=== PATIENT | male | born 2000 | race Caucasian/White ===

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

== ENCOUNTER 2021-01-14 23:32 | Emergency (ER) | payer OTHER ==
[2021-01-14 23:40] VITALS: TEMP 97.9
[2021-01-15] MEDS ORDERED: ONDANSETRON 4 MG ODT STARTER PACK 2 TAB BTL PO STA (00:02)
[2021-01-15] MEDS ORDERED: MAG HYDROX/AL HYDROX/SIMETH 30 ML, HYOSCYAMINE ELIXIR 10 ML, LIDOCAINE VISCOUS 2% 10 ML PO STA ×3 (00:02)
--- NOTE | 2021-01-15 00:14 | ED ---
Abdominal Pain HPI - General Chief Complaint: Abdominal Pain Stated Complaint: ABD Pain Time Seen by Provider: 01/14/21 23:46 Source: patient Mode of arrival: ambulatory - History of Present Illness Initial Comments: 20-year-old male patient presents to the emergency department today for evaluation of nausea and discomfort in his abdomen. Patient states that his abdomen has been feeling tight and crampy for the last couple of days. States that he has had diminished bowel movements. He reports nausea but no vomiting. States he is able to eat and drink. Denies taking any medication for his symptoms. Denies any fever or chills. Denies any nasal congestion, cough, shortness of breath. Denies any sick contacts or recent travel. - Related Data Previous Rx's Medication Instructions Recorded Famotidine [Pepcid] 20 mg PO HS #30 tablet 01/15/21 Ondansetron [Zofran ODT] 4 mg PO Q8HR PRN #10 tab 01/15/21 Allergies Allergy/AdvReac Type Severity Reaction Status Date / Time No Known Allergies Allergy Verified 01/14/21 23:39 Review of Systems ROS Statement: Those systems with pertinent positive or pertinent negative responses have been documented in the HPI. ROS Other: All systems not noted in ROS Statement are negative. Past Medical History Past Medical History: No Reported History History of Any Multi-Drug Resistant Organisms: None Reported Past Surgical History: No Surgical Hx Reported Additional Past Surgical History / Comment(s): right hand sx Past Psychological History: No Psychological Hx Reported Smoking Status: Current every day smoker Past Alcohol Use History: None Reported Past Drug Use History: None Reported General Exam General appearance: alert, in no apparent distress, other (Physical well- developed, well-nourished adult male patient in no acute distress. Vital signs upon presentation are temperature 97.9F, pulse 96, respirations 19, blood pressure 148/89, pulse ox 100% on room air.) Eye exam: Present: normal appearance, PERRL, EOMI. Absent: scleral icterus, conjunctival injection, periorbital swelling ENT exam: Present: normal exam, normal oropharynx, mucous membranes moist Respiratory exam: Present: normal lung sounds bilaterally. Absent: respiratory distress, wheezes, rales, rhonchi, stridor Cardiovascular Exam: Present: regular rate, normal rhythm, normal heart sounds. Absent: systolic murmur, diastolic murmur, rubs, gallop, clicks GI/Abdominal exam: Present: soft, normal bowel sounds. Absent: distended, tenderness, guarding, rebound, rigid Neurological exam: Present: alert, oriented X3, CN II-XII intact Psychiatric exam: Present: normal affect, normal mood Skin exam: Present: warm, dry, intact, normal color. Absent: rash Course Vital Signs 01/14/21 01/15/21 23:36 01:28 Temperature 97.9 F Pulse Rate 96 79 Respiratory 19 18 Rate Blood Pressure 148/89 139/88 O2 Sat by Pulse 100 98 Oximetry Medical Decision Making - Medical Decision Making This is a 20-year-old male patient presents to the emergency department today for evaluation of abdominal discomfort and nausea. Reports the sensation as feeling tight and crampy. Denies vomiting, denies constipation or diarrhea. There was states he is feeling nauseated. He is given Zofran and GI cocktail. X-ray of the abdomen was negative. I did discuss findings and results with him. He states he is feeling better after receiving the medication. I be discharged to follow up with his primary care physician for recheck in 1-2 days. Return parameters were discussed in detail. He verbalizes understanding and agrees with this plan. Case discussed with my attending Dr. Felix. - Radiology Data Radiology results: report reviewed, image reviewed KUB x-rays obtained. Report reviewed in its entirety. Impression by Dr. Pack shows nonacute abdomen. Disposition Clinical Impression: Abdominal pain, Nausea Disposition: HOME SELF-CARE Condition: Good Instructions (If sedation given, give patient instructions): Acute Nausea and Vomiting (ED), Abdominal Pain (ED) Additional Instructions: Take medications as directed. Follow up through primary care physician for recheck in 1-2 days. Return for any new, worsening, or concerning symptoms. Prescriptions: Famotidine [Pepcid] 20 mg PO HS #30 tablet Ondansetron [Zofran ODT] 4 mg PO Q8HR PRN #10 tab PRN Reason: Nausea Is patient prescribed a controlled substance at d/c from ED?: No Referrals: None,Stated [Primary Care Provider] - 1-2 days Time of Disposition: 01:08
--- NOTE | 2021-01-15 00:44 | XR ---
EXAMINATION TYPE: XR KUB DATE OF EXAM: 01/15/2021 COMPARISON: NONE HISTORY: Abdominal pain TECHNIQUE: 2 views FINDINGS: Bowel gas pattern is normal. There is no sign of intestinal obstruction or pneumoperitoneum . Fecal pattern is normal. There is no evidence of a mass. Lung bases are clear. There are no patholo gic calcifications over the kidneys. Bony structures appear intact. IMPRESSION: Nonacute abdomen.
[2021-01-15 01:30] VITALS: BP 139/88; PULSE 79; RESP 18
== END 2021-01-15 01:30 | disposition home or self-care (01) ==
LOC: EC 23:32
DX: R10.9 Unspecified abdominal pain (principal); R11.0 Nausea; F17.200 Nicotine dependence, unspecified, uncomplicated
CPT/HCPCS: 74018; 99283; S0119

== ENCOUNTER 2021-01-19 16:52 | Emergency (ER) | payer OTHER ==
[2021-01-19 17:03] VITALS: TEMP 98.6
[2021-01-19 17:34] LABS: Basophils % (A) 1 %; Eosinophils # (A) 0.2 k/uL (0-0.7); Eosinophils % (A) 2 %; HCT 49.5 % (39.0-53.0); Lymphocytes % (A) 22 %; MCH 31.1 pg (25.0-35.0); MCHC 32.4 g/dL (31.0-37.0); MCV 96.1 fL (80.0-100.0); Mean Platelet Volume 7.4; Monocytes # (A) 0.6 k/uL (0-1.0); Monocytes % (A) 7 %; Neutrophils # (A) 6.1 k/uL (1.3-7.7); Neutrophils % (A) 67 %; Platelet Count 286 k/uL (150-450); RBC 5.15 m/uL (4.30-5.90); RDW 12.8 % (11.5-15.5); WBC 9.1 k/uL (3.8-10.6)
[2021-01-19 17:52] LABS: ALT 21 U/L (4-49); AST 25 U/L (17-59); African American GFR (CKD) >90 (>60 ml/min/1.73 sqM); Albumin 4.7 g/dL (3.5-5.0); Alkaline Phosphatase 84 U/L (38-126); Anion Gap 10 mmol/L; Blood Urea Nitrogen 11 mg/dL (9-20); Calcium 9.8 mg/dL (8.4-10.2); Carbon Dioxide 26 mmol/L (22-30); Chloride 105 mmol/L (98-107); Glucose 115 mg/dL (74-99); Lipase 321 U/L (23-300); Non-African American GFR(CKD) >90 (>60 ml/min/1.73 sqM); Potassium 3.5 mmol/L (3.5-5.1); Sodium 141 mmol/L (137-145); Total Bilirubin 0.5 mg/dL (0.2-1.3); Total Protein 7.5 g/dL (6.3-8.2)
--- NOTE | 2021-01-19 17:54 | ED ---
General Adult HPI - General Chief complaint: Abdominal Pain Stated complaint: Abdominal pain, nausea Time Seen by Provider: 01/19/21 17:13 Source: patient Mode of arrival: ambulatory Limitations: no limitations - History of Present Illness Initial comments: Dictation was produced using [employer]ient[employer] dictation software. please excuse any grammatical, word or spelling errors. Chief Complaint: 20-year-old male presents to the emergency department for lower abdominal pain History of Present Illness: Patient 20-year-old male with no significant past medical history. He was seen here 5 days ago for symptoms consistent with gastritis is giving GI cocktail with improvement of symptoms. He states that his pain moved down to his lower abdomen. States when he works he has pain to his lower abdomen. Denies any vomiting or diarrhea. Does complain of some mild nausea. States that the pain is in the suprapubic area. Denies any testicular or penile pain. Denies any dysuria. The ROS documented in this emergency department record has been reviewed and confirmed by me. Those systems with pertinent positive or negative responses have been documented in the HPI. All other systems are other negative and/or noncontributory. PHYSICAL EXAM: General Impression: Alert and oriented x3, not in acute distress HEENT: Normocephalic atraumatic, extra-ocular movements intact, pupils equal and reactive to light bilaterally, mucous membranes moist. Cardiovascular: Heart regular rate and rhythm Chest: Able to complete full sentences, no retractions, no tachypnea Abdomen: abdomen soft, non-tender, non-distended, no organomegaly : No testicular tenderness, symmetrical Musculoskeletal: Pulses present and equal in all extremities, no peripheral edema Motor: no focal deficits noted Neurological: CN II-XII grossly intact, no focal motor or sensory deficits noted Skin: Intact with no visualized rashes Psych: Normal affect and mood ED course: 20 y Old male presents with lower abdominal pain. Vital Signs upon arrival are within acceptable limits. Laboratory evaluation obtained. CBC, metabolic panel is unremarkable. Lipase slightly elevated to 21. Urinalysis is negative. Patient reevaluated at bedside at 7:30 PM vitamin stable condition. This point is not entirely obvious was causing patient's symptoms. He is well-appearing with benign abdominal exam. He is well-appearing. Patient be discharged. - Related Data Previous Rx's Medication Instructions Recorded Famotidine [Pepcid] 20 mg PO HS #30 tablet 01/15/21 Ondansetron [Zofran ODT] 4 mg PO Q8HR PRN #10 tab 01/15/21 Allergies Allergy/AdvReac Type Severity Reaction Status Date / Time No Known Allergies Allergy Verified 01/19/21 17:59 Review of Systems ROS Statement: Those systems with pertinent positive or pertinent negative responses have been documented in the HPI. ROS Other: All systems not noted in ROS Statement are negative. Past Medical History Past Medical History: No Reported History History of Any Multi-Drug Resistant Organisms: None Reported Past Surgical History: No Surgical Hx Reported Additional Past Surgical History / Comment(s): right hand sx Past Psychological History: No Psychological Hx Reported Smoking Status: Current every day smoker Past Alcohol Use History: None Reported Past Drug Use History: None Reported General Exam Limitations: no limitations Course Vital Signs 01/19/21 01/19/21 17:01 18:30 Temperature 98.6 F Pulse Rate 100 79 Respiratory 18 18 Rate Blood Pressure 115/81 131/80 O2 Sat by Pulse 99 96 Oximetry Medical Decision Making - Lab Data Result diagrams: 01/19/21 17:22 01/19/21 17:22 Lab Results 01/19/21 01/19/21 01/19/21 Range/Units 17:22 17:22 19:12 WBC 9.1 (3.8-10.6) k/uL RBC 5.15 (4.30-5.90) m/uL Hgb 16.0 (13.0-17.5) gm/dL Hct 49.5 (39.0-53.0) % MCV 96.1 (80.0-100.0) fL MCH 31.1 (25.0-35.0) pg MCHC 32.4 (31.0-37.0) g/dL RDW 12.8 (11.5-15.5) % Plt Count 286 (150-450) k/uL MPV 7.4 Neutrophils % 67 % Lymphocytes % 22 % Monocytes % 7 % Eosinophils % 2 % Basophils % 1 % Neutrophils # 6.1 (1.3-7.7) k/uL Lymphocytes # 2.0 (1.0-4.8) k/uL Monocytes # 0.6 (0-1.0) k/uL Eosinophils # 0.2 (0-0.7) k/uL Basophils # 0.0 (0-0.2) k/uL Sodium 141 (137-145) mmol/L Potassium 3.5 (3.5-5.1) mmol/L Chloride 105 (98-107) mmol/L Carbon Dioxide 26 (22-30) mmol/L Anion Gap 10 mmol/L BUN 11 (9-20) mg/dL Creatinine 0.92 (0.66-1.25) mg/dL Est GFR (CKD-EPI)AfAm >90 (>60 ml/min/1.73 sqM) Est GFR (CKD-EPI)NonAf >90 (>60 ml/min/1.73 sqM) Glucose 115 H (74-99) mg/dL Calcium 9.8 (8.4-10.2) mg/dL Total Bilirubin 0.5 (0.2-1.3) mg/dL AST 25 (17-59) U/L ALT 21 (4-49) U/L Alkaline Phosphatase 84 (38-126) U/L Total Protein 7.5 (6.3-8.2) g/dL Albumin 4.7 (3.5-5.0) g/dL Lipase 321 H (23-300) U/L Urine Color Yellow Urine Appearance Clear (Clear) Urine pH 6.0 (5.0-8.0) Ur Specific [place] 1.031 (1.001-1.035) Urine Protein Trace H (Negative) Urine Glucose (UA) Negative (Negative) Urine Ketones Negative (Negative) Urine Blood Negative (Negative) Urine Nitrite Negative (Negative) Urine Bilirubin Negative (Negative) Urine Urobilinogen 2.0 (<2.0) mg/dL Ur Leukocyte Esterase Negative (Negative) Disposition Clinical Impression: Abdominal pain Disposition: HOME SELF-CARE Condition: Fair Instructions (If sedation given, give patient instructions): Abdominal Pain (ED) Is patient prescribed a controlled substance at d/c from ED?: No Referrals: None,Stated [Primary Care Provider] - 1-2 days
[2021-01-19 19:24] LABS: Appearance,Urine Clear (Clear); Bilirubin,Urine Negative (Negative); Blood,Urine Negative (Negative); Color,Urine Yellow; Glucose,Urine (UA) Negative (Negative); Ketones,Urine Negative (Negative); Leukocyte Esterase,Urine Negative (Negative); Nitrite,Urine Negative (Negative); Protein,Urine Trace (Negative); Specific Gravity,Urine 1.031 (1.001-1.035)
[2021-01-19 19:38] VITALS: BP 134/82; PULSE 76; RESP 20
== END 2021-01-19 19:38 | disposition home or self-care (01) ==
LOC: EC 16:52
DX: R10.30 Lower abdominal pain, unspecified (principal); R11.0 Nausea; F17.200 Nicotine dependence, unspecified, uncomplicated
CPT/HCPCS: 36415; 80053; 81003; 83690; 85025; 99284

== ENCOUNTER 2021-01-27 12:01 | Emergency (ER) | payer OTHER ==
[2021-01-27 12:05] VITALS: RESP 18
--- NOTE | 2021-01-27 12:36 | ED ---
General Adult HPI - General Source: patient, RN notes reviewed, old records reviewed Mode of arrival: ambulatory Limitations: no limitations - History of Present Illness -: days(s) (1) Severity scale (1-10): 5 (Sore throat) Consistency: intermittent Improves with: none Worsens with: none Associated Symptoms: nausea/vomiting Treatments Prior to Arrival: other (Zofran at 10:30) <John Benavidez - Last Filed: 01/27/21 19:41> <Elza Alejandro - Last Filed: 01/27/21 23:27> - General Chief complaint: ENT Stated complaint: neck swelling/wants covid test/nausea - History of Present Illness Initial comments: Well-appearing 20-year-old white male, alert and oriented 4, presents to the emergency room with complaints of a sore throat since yesterday. He states that he was seen recently for the same along with some abdominal pain and nausea. He does state that he smokes marijuana daily. He did take a Zofran today at 10:30 with some relief. His last bowel movement was today. He was concerned that he may be exposed to Covid and is in for Covid test. (John Benavidez) - Related Data Previous Rx's Medication Instructions Recorded Famotidine [Pepcid] 20 mg PO HS #30 tablet 01/15/21 Ondansetron [Zofran ODT] 4 mg PO Q8HR PRN #10 tab 01/15/21 Allergies Allergy/AdvReac Type Severity Reaction Status Date / Time No Known Allergies Allergy Verified 01/27/21 13:32 Review of Systems ROS Other: All systems not noted in ROS Statement are negative. <John Benavidez - Last Filed: 01/27/21 19:41> ROS Other: All systems not noted in ROS Statement are negative. <Elza Alejandro - Last Filed: 01/27/21 23:27> ROS Statement: Those systems with pertinent positive or pertinent negative responses have been documented in the HPI. Past Medical History Past Medical History: No Reported History History of Any Multi-Drug Resistant Organisms: None Reported Past Surgical History: No Surgical Hx Reported Additional Past Surgical History / Comment(s): right hand sx Past Psychological History: No Psychological Hx Reported Smoking Status: Current some day smoker Past Alcohol Use History: None Reported Past Drug Use History: Marijuana <John Benavidez - Last Filed: 01/27/21 19:41> General Exam Limitations: no limitations General appearance: alert, in no apparent distress Head exam: Present: atraumatic, normocephalic, normal inspection Eye exam: Present: normal appearance, PERRL, EOMI. Absent: scleral icterus, conjunctival injection, periorbital swelling ENT exam: Present: normal exam, normal oropharynx, mucous membranes moist Neck exam: Present: normal inspection, full ROM. Absent: tenderness, meningismus, lymphadenopathy, thyromegaly Respiratory exam: Present: normal lung sounds bilaterally. Absent: respiratory distress, wheezes, rales, rhonchi, stridor, chest wall tenderness, accessory muscle use, decreased breath sounds, prolonged expiratory Cardiovascular Exam: Present: regular rate, normal rhythm, normal heart sounds. Absent: systolic murmur, diastolic murmur, rubs, gallop, clicks GI/Abdominal exam: Present: soft, normal bowel sounds. Absent: distended, tenderness, guarding, rebound, rigid Extremities exam: Present: normal inspection, full ROM, normal capillary refill. Absent: tenderness, pedal edema, joint swelling, calf tenderness Back exam: Present: normal inspection, full ROM. Absent: tenderness, CVA tenderness (R), CVA tenderness (L), muscle spasm, paraspinal tenderness, verte bral tenderness Neurological exam: Present: alert, oriented X3, CN II-XII intact Psychiatric exam: Present: normal affect, normal mood, anxious Skin exam: Present: warm, dry, intact, normal color. Absent: rash, cyanosis, diaphoretic, erythema, petechiae, pallor, mottled <John Benavidez - Last Filed: 01/27/21 19:41> Course Vital Signs 01/27/21 01/27/21 12:03 13:59 Temperature 98.5 F 98.3 F Pulse Rate 100 97 Respiratory 18 18 Rate Blood Pressure 131/85 137/80 O2 Sat by Pulse 98 98 Oximetry Medical Decision Making <John Benavidez - Last Filed: 01/27/21 19:41> <Elza Alejandro A - Last Filed: 01/27/21 23:27> - Medical Decision Making The patient does state that he smokes marijuana daily which may be a cause of his persistent nausea and vomiting. There is no evidence of infection, he denies any fevers or hematochezia or hematemesis. He does get relief with the Zofran and he was recently prescribed. Abdomen is soft and nontender. His covid test was negative. He is well-appearingvital signs within normal limits. This is likely nausea related to excessive marijuana use. He'll be directed to follow up with his primary care doctor. Case was discussed with Dr. Alejandro (John Benavidez) I was available for consultation in the emergency department. The history and physical exam were done by the midlevel provider. I was consulted for this patients care. I reviewed the case with the midlevel provider and based on their presentation of the patient, I agree with the assessment, medical decision making and plan of care as documented. Chart was dictated using [employer] dictation software. Attempts were made to correct any dictation errors however some typographical errors may persist. Patient was seen during a national state of emergency due to the Covid-19 pandemic. (Elza Alejandro) - Lab Data Lab Results 01/27/21 Range/Units 12:46 Coronavirus (PCR) Not Detected (Not Detectd) Disposition Is patient prescribed a controlled substance at d/c from ED?: No Time of Disposition: 13:18 <Jonh Benavidez - Last Filed: 01/27/21 19:41> <Elza Alejandro - Last Filed: 01/27/21 23:27> Clinical Impression: Nausea Disposition: HOME SELF-CARE Condition: Good Instructions (If sedation given, give patient instructions): Acute Nausea and Vomiting (ED) Additional Instructions: Stop smoking marijuana. Return to the emergency room with any worsening symptoms, fever or inability to keep any fluids down. Follow-up with your doctor in 1 week Referrals: None,Stated [Primary Care Provider] - 1-2 days
[2021-01-27 14:00] VITALS: BP 137/80; PULSE 97; TEMP 98.3
== END 2021-01-27 14:00 | disposition home or self-care (01) ==
LOC: EC 12:01
DX: R11.2 Nausea with vomiting, unspecified (principal); R10.9 Unspecified abdominal pain; R22.1 Localized swelling, mass and lump, neck; F17.200 Nicotine dependence, unspecified, uncomplicated; Z20.822 Contact with and (suspected) exposure to COVID-19
CPT/HCPCS: 87635; 99284

== ENCOUNTER 2021-01-29 18:17 | Emergency (ER) | payer OTHER ==
[2021-01-29 18:23] VITALS: BP 134/74; PULSE 91; RESP 18; TEMP 98.4
[2021-01-29] MEDS ORDERED: DEXAMETHASONE SOD PHOSPHATE 10 MG/ML 1 ML VIAL IM STA (19:24)
--- NOTE | 2021-01-29 20:23 | ED ---
General Adult HPI - General Chief complaint: Upper Respiratory Infection Stated complaint: throat swelling-revisit Time Seen by Provider: 01/29/21 19:12 Source: patient Mode of arrival: ambulatory Limitations: no limitations - History of Present Illness Initial comments: 20-year-old male presenting to the emergency department with a chief complaint of cough and congestion. Patient reports he was evaluated about 3 days ago and emergency department and headache over test which was negative. States is also had an evaluation for stroke swelling without any significant changes to his voice. Patient reports there is no sore throat but feels like the swelling is mostly on the right side of the neck. Denies any overlying protrusions or erythema or ecchymosis. Denies any injury to the region. Also reports a productive cough with "tarry" sputum production which she believes is secondary to quitting to smoke marijuana. He denies any chest pain or shortness of breath. Denies any rhinorrhea otalgia headaches. - Related Data Previous Rx's Medication Instructions Recorded Famotidine [Pepcid] 20 mg PO HS #30 tablet 01/15/21 Ondansetron [Zofran ODT] 4 mg PO Q8HR PRN #10 tab 01/15/21 Allergies Allergy/AdvReac Type Severity Reaction Status Date / Time No Known Allergies Allergy Verified 01/29/21 18:24 Review of Systems ROS Statement: Those systems with pertinent positive or pertinent negative responses have been documented in the HPI. ROS Other: All systems not noted in ROS Statement are negative. Past Medical History Past Medical History: No Reported History History of Any Multi-Drug Resistant Organisms: None Reported Past Surgical History: No Surgical Hx Reported Additional Past Surgical History / Comment(s): right hand sx Past Psychological History: No Psychological Hx Reported Smoking Status: Current some day smoker Past Alcohol Use History: None Reported Past Drug Use History: Marijuana General Exam Limitations: no limitations General appearance: alert, in no apparent distress Head exam: Present: atraumatic, normocephalic, normal inspection Eye exam: Present: normal appearance Pupils: Present: normal accommodation ENT exam: Present: normal exam, normal oropharynx, mucous membranes moist Neck exam: Present: normal inspection, full ROM. Absent: tenderness, meningismus, lymphadenopathy, thyromegaly Respiratory exam: Present: normal lung sounds bilaterally. Absent: respiratory distress, wheezes, rhonchi, stridor, chest wall tenderness Cardiovascular Exam: Present: regular rate, normal rhythm, normal heart sounds. Absent: systolic murmur, diastolic murmur GI/Abdominal exam: Present: soft. Absent: distended, tenderness, guarding, rebound Extremities exam: Present: normal inspection, full ROM. Absent: tenderness Back exam: Present: normal inspection, full ROM. Absent: tenderness Neurological exam: Present: alert, oriented X3 Psychiatric exam: Present: normal affect, normal mood Skin exam: Present: warm, dry, intact, normal color Course Vital Signs 01/29/21 18:21 Temperature 98.4 F Pulse Rate 91 Respiratory 18 Rate Blood Pressure 134/74 O2 Sat by Pulse 98 Oximetry Medical Decision Making - Medical Decision Making 20-year-old male presenting to the emergency department with a chief complaint of cough and congestion. On physical examination, no palpable masses in the neck. No signs of Stanton's angina. Uvula midline. No changes to his voice. X-ray soft tissue neck is unremarkable. Patient was given 10 mg of Decadron. On reevaluation, he reports resolution of his symptoms. Return parameters were thoroughly discussed the patient is understanding and agreeable. PCP follow-up. Case discussed with Dr. Pulido. Disposition Clinical Impression: Upper respiratory infection Disposition: HOME SELF-CARE Condition: Stable Instructions (If sedation given, give patient instructions): Upper Respiratory Infection (ED) Additional Instructions: Please return to the Emergency Department if symptoms worsen or any other concerns. Is patient prescribed a controlled substance at d/c from ED?: No Referrals: None,Stated [Primary Care Provider] - 1-2 days Time of Disposition: 21:10
--- NOTE | 2021-01-29 20:40 | XR ---
RESULT: HISTORY: neck swelling TECHNIQUE: 2 views of the neck soft tissues were obtained. COMPARISON: None. FINDINGS: The visualized airways are unremarkable. No acute osseous abnormality. The prevertebral soft tissues are within normal limits. No radiopaque foreign body. IMPRESSION: No acute process.
== END 2021-01-29 21:21 | disposition home or self-care (01) ==
LOC: EC 18:17
DX: J06.9 Acute upper respiratory infection, unspecified (principal); F17.200 Nicotine dependence, unspecified, uncomplicated
CPT/HCPCS: 70360; 99283; 96372; J1100